=== PATIENT | male | born 1975 | race Caucasian/White ===

== ENCOUNTER 2018-08-09 22:28 | Observation (INO) ==
[2018-08-09] MEDS ORDERED: Aspirin 325 MG Tablet PO ONE (23:17)
--- NOTE | 2018-08-09 23:19 | ED ---
HPI General Chief Complaint: Chest Pain Stated Complaint: chest pain/Dizzy Time Seen by Provider: 08/09/18 23:17 Source: patient Mode of arrival: ambulatory Limitations: no limitations History of Present Illness HPI narrative: 43-year-old male patient with history of diabetes, hypertension, CHF, presents to the ER today because he states that he has not been feeling well for the last few days, nauseous, and today is having left-sided chest pains which she currently rates at an 8 out of 10. He states that his blood sugars have been out of control, in the 300 range. He has been feeling dizzy as well, and has been vomiting. He denies any abdominal pains, diarrhea, fevers , or other symptoms. Related Data Home Medications Medication Instructions Recorded Confirmed atorvastatin 40 mg PO HS 08/09/18 08/09/18 furosemide [Lasix] 40 mg PO DAILY 08/09/18 08/09/18 hydrocodone-acetaminophen [[place]] 2 tab PO Q8H PRN 08/09/18 08/09/18 insulin glargine [Lantus U-100 30 unit SUBCUT DAILY 08/09/18 08/09/18 Insulin] metoprolol succinate 50 mg PO DAILY 08/09/18 08/09/18 potassium chloride 20 meq PO DAILY 08/09/18 08/09/18 pregabalin [Lyrica] 150 mg PO DAILY 08/09/18 08/09/18 tizanidine 4 mg PO TID PRN 08/09/18 08/09/18 trazodone 100 mg PO HS 08/09/18 08/09/18 Allergies Allergy/AdvReac Type Severity Reaction Status Date / Time No Known Allergies Allergy Verified 08/09/18 22:29 Review of Systems ROS: all other systems reviewed are negative [facility] Medical History Medical History Diabetes (Acute) Enlarged heart (Acute) High cholesterol (Acute) Hypertension (Acute) Surgical History Surgical History History of back surgery (Acute) History of shoulder surgery (Acute) Social History Social History Substance History: No History of Abuse Smoking Status: Current every day smoker Tobacco Type: Cigarettes How Often Do You Have a Drink Containing Alcohol: Never Recent Travel in [facility] within the Last 8 Weeks: No Recent Out of Country Travel within the Last 8 Weeks: No Immunization History Tetanus Immunization: Unsure Exam Narrative Exam Narrative: GENERAL: Well-developed middle-age male patient currently in moderate distress. Awake and oriented x3. SKIN: Focused skin assessment warm/dry. HEAD: Atraumatic. Normocephalic. EYES: Pupils equal and round. No scleral icterus. No injection or drainage. ENT: No nasal bleeding or discharge. Mucous membranes pink and moist. NECK: Trachea midline. No JVD. Supple. CARDIOVASCULAR: Regular rate and rhythm. No murmur appreciated. RESPIRATORY: No accessory muscle use. Clear to auscultation. Breath sounds equal bilaterally. GASTROINTESTINAL: Abdomen soft, non-tender, nondistended. Hepatic and splenic margins not palpable. MUSCULOSKELETAL: No obvious deformities. No clubbing. No cyanosis. No edema. NEUROLOGICAL: Awake and alert. No obvious cranial nerve deficits. Motor grossly within normal limits. Normal speech. PSYCHIATRIC: Appropriate mood and affect; insight and judgment normal. Course Initial Documented Vital Signs Temperature 98.7 F 08/09/18 22:30 Pulse Rate 94 H 08/09/18 22:30 Respiratory Rate 20 08/09/18 22:30 Blood Pressure 188/102 H 08/09/18 22:30 Pulse Oximetry 96 08/09/18 22:30 Last Documented Vital Signs Temperature 98.7 F 08/09/18 22:30 Pulse Rate 88 08/09/18 23:51 Respiratory Rate 20 08/09/18 22:30 Blood Pressure 163/80 H 08/09/18 23:51 Pulse Oximetry 96 08/09/18 23:51 Medical Decision Making MDM Narrative Medical decision making narrative: EKG did not show significant dysrhythmias. No acute ST changes. Chest x-ray was fairly unremarkable. Vital signs are stable in the ER. However, considering his medical history, he is at risk for cardiac disease and my plan would be to admit him to chest pain center for further evaluation. Medical Screen Exam Complete: Yes Emergency Medical Condition: Yes Differential Diagnosis Differential Diagnosis: ACS versus pneumonia versus dysrhythmias versus electrolyte abnormalities Lab Data Lab results reviewed: Yes I reviewed the patient's lab results. Result diagrams: 08/09/18 23:50 10/25/18 23:50 Lab Results 08/09/18 08/09/18 08/09/18 Range/Units 23:50 23:50 23:50 WBC 12.2 H (4.0-11.0) th/mm3 RBC 5.20 (4.50-5.90) mil/mm3 Hgb 15.7 (13.0-17.0) gm/dL Hct 45.5 (39.0-51.0) % MCV 87.4 (80.0-100.0) fL MCH 30.2 (27.0-34.0) pg MCHC 34.6 (32.0-36.0) % RDW 13.7 (11.6-17.2) % Plt Count 280 (150-450) th/mm3 MPV 7.5 (7.0-11.0) fL Neut % (Auto) 61.4 (16.0-70.0) % Lymph % (Auto) 27.7 (9.0-44.0) % [place] % (Auto) 7.3 (0.0-8.0) % Eos % (Auto) 3.2 (0.0-4.0) % Baso % (Auto) 0.4 (0.0-2.0) % Neut # (Auto) 7.5 (1.8-7.7) th/mm3 Lymph # (Auto) 3.4 (1.0-4.8) th/mm3 [place] # (Auto) 0.9 (0.0-0.9) th/mm3 Eos # (Auto) 0.4 (0.0-0.4) th/mm3 Baso # (Auto) 0.1 (0.0-0.2) th/mm3 WBC Differential . Differential Comment Auto diff final Sodium 142 (136-145) meq/L Potassium 4.0 (3.5-5.1) meq/L Chloride 107 (98-107) meq/L Carbon Dioxide 26.0 (21.0-32.0) meq/L Anion Gap 9 (5-15) meq/L BUN 11 (7-18) mg/dL Creatinine 0.96 (0.60-1.30) mg/dL Estimated GFR 85 L (>89) mL/min Random Glucose 184 H (74-106) mg/dL Calcium 8.5 (8.5-10.1) mg/dL Total Bilirubin 0.6 (0.2-1.0) mg/dL AST 30 (15-37) U/L ALT 57 (12-78) U/L Alkaline Phosphatase 114 (45-117) U/L Troponin I Less than 0.02 L (0.02-0.05) ng/mL B-Natriuretic Peptide 7 (0-100) pg/mL Total Protein 7.4 (6.4-8.2) g/dL Albumin 3.6 (3.4-5.0) g/dL Imaging Data Attestation: I personally reviewed and interpreted this imaging study as follows : Radiologist's impression: Chest X-Ray 08/09/18 23:17 CONCLUSION: The lungs are clear. ECG Data Attestation: I personally reviewed and interpreted this ECG as follows: Interpretation: EKG shows normal sinus rhythm at a rate of 90 bpm. No signs of acute ST elevations or depressions. Discharge Plan Discharge Disposition Patient Disposition: 30 Still Patient Discharge Condition Condition: Stable Discharge Details Anticipated Discharge Date: 08/10/18 Diagnosis: Chest pain Physicians Team ED Provider: Jb Ruff Primary Care Provider: Primary Care Cris Garcia Rxs /Orders / Referrals /Forms Prescriptions: No Action furosemide [Lasix] 40 mg Tablet 40 mg PO DAILY RF: 0 atorvastatin 40 mg Tablet 40 mg PO HS RF: 0 insulin glargine [Lantus U-100 Insulin] 100 unit/mL Solution 30 unit SUBCUT DAILY RF: 0 metoprolol succinate 50 mg Tablet Extended Release 24 Hr 50 mg PO DAILY RF: 0 hydrocodone-acetaminophen [[place]] 10-325 mg Tablet 2 tab PO Q8H PRN (Reason: Pain) RF: 0 trazodone 100 mg Tablet 100 mg PO HS RF: 0 tizanidine 4 mg Capsule 4 mg PO TID PRN (Reason: Sleep) RF: 0 pregabalin [Lyrica] 150 mg Capsule 150 mg PO DAILY RF: 0 potassium chloride 20 mEq Tablet Extended Release 20 meq PO DAILY RF: 0 Discharge Instructions Patient Printed Instructions: Chest Pain (ED) Discharge Interventions Interventions: Vital Signs Last Done: 08/09/18 22:53 Status ED Status: With Doctor
--- NOTE | 2018-08-09 23:42 | XR ---
EXAM DATE: 08/09/2018 11:33 PM EDT AGE/SEX: 43 years / Male INDICATIONS: Left sided chest pain, dizziness for 5 hours CLINICAL DATA: This is the patient's initial encounter. Patient reports that signs and symptoms have been present for 1 day and indicates a pain score of 8/10. MEDICAL/SURGICAL HISTORY: Congestive heart failure. Diabetes. None. COMPARISON: No prior exams available for comparison. FINDINGS: A single AP view of the chest demonstrates the lungs to be symmetrically aerated without evidence of mass, infiltrate or effusion. The cardiomediastinal contours are unremarkable. Osseous structures a re intact. CONCLUSION: The lungs are clear. Electronically signed by: Wm Stauffer MD 08/09/2018 11:41 PM EDT
[2018-08-10 00:03] LABS: Baso # (Auto) 0.1 th/mm3 (0.0-0.2); Baso % (Auto) 0.4 % (0.0-2.0); Eos # (Auto) 0.4 th/mm3 (0.0-0.4); Eos % (Auto) 3.2 % (0.0-4.0); Hematocrit 45.5 % (39.0-51.0); Hemoglobin 15.7 gm/dL (13.0-17.0); Lymph # (Auto) 3.4 th/mm3 (1.0-4.8); Lymph % (Auto) 27.7 % (9.0-44.0); Mean Corpuscular HGB Conc 34.6 % (32.0-36.0); Mean Corpuscular Hemoglobin 30.2 pg (27.0-34.0); Mean Corpuscular Volume 87.4 fL (80.0-100.0); Mean Platelet Volume 7.5 fL (7.0-11.0); Mono # (Auto) 0.9 th/mm3 (0.0-0.9); Mono % (Auto) 7.3 % (0.0-8.0); Neut # (Auto) 7.5 th/mm3 (1.8-7.7); Neut % (Auto) 61.4 % (16.0-70.0); Platelet Count 280 th/mm3 (150-450); Red Cell Distribution Width 13.7 % (11.6-17.2); White Blood Count 12.2 th/mm3 (4.0-11.0)
[2018-08-10 00:23] LABS: Alanine Aminotransferase 57 U/L (12-78)
[2018-08-10 00:27] LABS: Alkaline Phosphatase 114 U/L (45-117); Total Protein 7.4 g/dL (6.4-8.2)
[2018-08-10 00:31] LABS: Albumin 3.6 g/dL (3.4-5.0); Anion Gap 9 meq/L (5-15); Aspartate Aminotransferase 30 U/L (15-37); Blood Urea Nitrogen 11 mg/dL (7-18); Calcium 8.5 mg/dL (8.5-10.1); Chloride 107 meq/L (98-107); Glomerular Filtration Rate 85 mL/min (>89); Glucose,Random 184 mg/dL (74-106); Sodium 142 meq/L (136-145)
[2018-08-10] MEDS ORDERED: traZODone 100 MG Tablet PO PRN (02:45)
[2018-08-10 03:45] LABS: Creatine Kinase 272 U/L (39-308)
[2018-08-10 08:10] LABS: Creatine Kinase 215 U/L (39-308)
[2018-08-10 08:12] VITALS: BP 150/86; PULSE 77; RESP 12; TEMP 98.4; O2SAT 94
--- NOTE | 2018-08-10 08:24 | ECG ---
Date Performed: 08/10/2018 Time Performed: 05:12:00 PTAGE: 43 years EKG: Sinus rhythm NORMAL ECG PREVIOUS TRACING : 08/10/2018 01.36 Since previous tracing, no significant change noted DOCTOR: Jordi Abel Interpretating Date/Time 08/11/2018 07:32:45
--- NOTE | 2018-08-10 08:30 | ECG ---
Date Performed: 08/09/2018 Time Performed: 22:59:14 PTAGE: 43 years EKG: Sinus rhythm NORMAL ECG NO PREVIOUS TRACING DOCTOR: Jordi Abel Interpretating Date/Time 08/10/2018 08:29:49
--- NOTE | 2018-08-10 08:45 | P.HPCA ---
History of Present Illness Primary Care Physician: No Primary Care Physician Chief Complaint: Chest pain History of Present Illness: This is a 43-year-old male with history of diabetes, hypertension, hyperlipidemia and also stated history of congestive heart failure that presents to ED with complaint of left-sided chest pain that began yesterday. Last 2-3 hours. Was rated as an 8 out of 10. Was at home when it began. He was nauseous diaphoretic and shortness of breath. States similar episodes have happened in the past. States this occurs about every 3 weeks. Found nothing in particular to bring this on. He said this has been evaluated before. States last evaluation was 6 months ago in [place] and had a normal stress test. Currently denies chest discomfort. States history of congestive heart failure, diabetes, hypertension, hyperlipidemia, tobacco abuse. Denies known CAD. Denies family history of CAD. Smokes 1 pack a series daily and has done so for 25 years. - Diagnosis (1) Chest pain (2) Hypertension (3) Hyperlipidemia (4) Diabetes (5) Obesity (6) Tobacco abuse Review of Systems General: Patient denies fevers, chills, and recent travel. HEENT: Patient denies headache, sore throat, difficulty swallowing. Cardiovascular: Has the chest discomfort as mentioned above. Denies sensation of heart beating rapidly or irregularly. No syncope. He was diaphoretic. Respiratory: He was short of breath. Denies inspirational chest discomfort. Denies coughing wheezing or hemoptysis. GI: He was nauseous. Patient denies vomiting, diarrhea, abdominal pain, bloody stools. Musculoskeletal: Patient denies joint pain or edema. Denies calf pain or edema. Neurovascular: Patient denies numbness, tingling, weakness in extremities. Denies headache. Endocrine: Denies polyuria and polydipsia. Hematologic: Denies easy bruising. Skin: Denies rash or itching. PMFSH - History History Provided By: Patient - Medical History Medical History: Medical History (Last Reviewed 08/09/18 @ 23:18 by Jb Ruff MD) Diabetes Enlarged heart High cholesterol Hypertension - Surgical History Surgical History: Surgical History (Last Reviewed 08/09/18 @ 23:18 by Jb Ruff MD) History of back surgery History of shoulder surgery - Tobacco History Second Hand Smoke Exposure: Yes Tobacco Use In Past 30 Days: Yes Smoking Status: Current every day smoker Tobacco Type: Cigarettes - Alcohol History How Often Do You Have a Drink Containing Alcohol: 2 to 4 times a month - Substance Use History Substance History: No History of Abuse - Travel History Recent Travel in the [place] Within the Last 8 Weeks: No Recent Travel Out of the Country Within the Last 8 Weeks: No - Immunization History Tetanus Immunization: Unsure Medications and Allergies Active Medications: Active Medications Hydrocodone Bitart/Acetaminophen ([place] 10/325) 2 tab PO Q8H PRN PRN Reason: PAIN SCALE 1-10 Last Admin: 08/10/18 02:55 Dose: 2 tab Albuterol (Duoneb Neb (Prn)) 1 ampul NEB Q4HR NEB PRN PRN Reason: SHORTNESS OF BREATH/WHEEZING Aspirin (Aspirin) 325 mg PO DAILY ELISABET Atorvastatin Calcium (Lipitor) 40 mg PO HS ELISABET Furosemide (Lasix) 40 mg PO DAILY ELISABET Insulin Human Regular (Novolin R Correctional Sugar Inj) 0 units SQ ACHS ELISABET; Protocol Metoprolol Succinate (Toprol Xl) 50 mg PO DAILY ELISABET Non-Formulary Medication (Potassium Chloride [Potassium Chloride]) 20 meq PO DAILY ELISABET Non-Formulary Medication (Pregabalin [Lyrica]) 150 mg PO DAILY ELISABET Non-Formulary Medication (Tizanidine [Tizanidine]) 4 mg PO TID PRN PRN Reason: Sleep Sodium Chloride (Ns Flush) 2 ml IV.FLUSH BID ELISABET Sodium Chloride (Ns Flush) 2 ml IV.FLUSH PRN PRN PRN Reason: FLUSH AFTER USING IV ACCESS Trazodone HCl (Desyrel) 100 mg PO HS PRN PRN Reason: INSOMNIA Last Admin: 08/10/18 02:55 Dose: 100 mg Trazodone HCl (Desyrel) 100 mg PO HS ELISABET Allergies Allergy/AdvReac Type Severity Reaction Status Date / Time No Known Allergies Allergy Verified 08/09/18 22:29 Home Medications Medication Instructions Recorded Confirmed Type atorvastatin 40 mg PO HS 08/09/18 08/09/18 History furosemide [Lasix] 40 mg PO DAILY 08/09/18 08/09/18 History hydrocodone-acetaminophen [[place]] 2 tab PO Q8H PRN 08/09/18 08/09/18 History insulin glargine [Lantus U-100 30 unit SUBCUT DAILY 08/09/18 08/09/18 History Insulin] metoprolol succinate 50 mg PO DAILY 08/09/18 08/09/18 History potassium chloride 20 meq PO DAILY 08/09/18 08/09/18 History pregabalin [Lyrica] 150 mg PO DAILY 08/09/18 08/09/18 History tizanidine 4 mg PO TID PRN 08/09/18 08/09/18 History trazodone 100 mg PO HS 08/09/18 08/09/18 History Exam Vital signs: Vital Signs 08/09/18 22:30 08/09/18 22:53 08/09/18 23:51 Temperature 98.7 F Pulse Rate 94 H 93 H 88 Respiratory Rate 20 Blood Pressure 188/102 H 152/105 H 163/80 H Pulse Oximetry 96 97 96 08/10/18 03:46 08/10/18 08:00 Temperature 97.5 F L 98.4 F Pulse Rate 78 77 Respiratory Rate 16 12 Blood Pressure 140/75 150/86 H Pulse Oximetry 99 94 L Intake & Output 08/09/18 08/10/18 08/10/18 18:59 06:59 18:59 Weight 192.777 kg Other: Date of Last Bowel Movement 08/10/18 Weight On Admission 192.777 kg Narrative: GENERAL: He is a morbidly obese patient with a BMI 51.7. This is a patient that is in no apparent distress. Patient speaks in clear complete sentences. Patient is pleasant. HEENT: Head is atraumatic and normocephalic. Neck is supple without lymphadenopathy and trachea is midline. No JVD or carotid bruits. CARDIOVASCULAR: Regular rate and rhythm without murmurs, gallops, or rubs. RESPIRATORY: Clear to auscultation. Breath sounds equal bilaterally. No wheezes , rales, or rhonchi. Chest wall is nontender. No use of accessory muscles. GASTROINTESTINAL: Abdomen is nontender, nondistended. Abdomen soft. No obvious pulsatile mass or bruit. No CVA tenderness. Strong femoral pulses bilaterally. Normal bowel sounds in all quadrants. MUSCULOSKELETAL: Patient is moving upper and lower extremities freely. No calf tenderness or edema, no Homans sign. Strong pulses in upper and lower extremities. NEUROLOGICAL: Patient is alert and oriented. Cranial nerves 2-12 are grossly intact. No focal deficits and speech is clear. SKIN: No rash and turgor is normal. Results 08/09/18 23:50 08/09/18 23:50 Cardiac Enzymes 08/09/18 08/09/18 08/10/18 Range/Units 23:50 23:50 02:40 AST 30 (15-37) U/L Troponin I Less than 0.02 L Less than 0.02 L (0.02-0.05) ng/mL B-Natriuretic Peptide 7 (0-100) pg/mL 08/10/18 Range/Units 06:23 AST (15-37) U/L Troponin I Less than 0.02 L (0.02-0.05) ng/mL B-Natriuretic Peptide (0-100) pg/mL Coagulation 08/09/18 Range/Units 23:50 B-Natriuretic Peptide 7 (0-100) pg/mL CBC 08/09/18 Range/Units 23:50 WBC 12.2 H (4.0-11.0) th/mm3 RBC 5.20 (4.50-5.90) mil/mm3 Hgb 15.7 (13.0-17.0) gm/dL Hct 45.5 (39.0-51.0) % Plt Count 280 (150-450) th/mm3 Neut # (Auto) 7.5 (1.8-7.7) th/mm3 Lymph # (Auto) 3.4 (1.0-4.8) th/mm3 [place] # (Auto) 0.9 (0.0-0.9) th/mm3 Eos # (Auto) 0.4 (0.0-0.4) th/mm3 Baso # (Auto) 0.1 (0.0-0.2) th/mm3 Comprehensive Metabolic Panel 08/09/18 Range/Units 23:50 Sodium 142 (136-145) meq/L Potassium 4.0 (3.5-5.1) meq/L Chloride 107 (98-107) meq/L Carbon Dioxide 26.0 (21.0-32.0) meq/L BUN 11 (7-18) mg/dL Creatinine 0.96 (0.60-1.30) mg/dL Calcium 8.5 (8.5-10.1) mg/dL AST 30 (15-37) U/L ALT 57 (12-78) U/L Alkaline Phosphatase 114 (45-117) U/L Total Protein 7.4 (6.4-8.2) g/dL Albumin 3.6 (3.4-5.0) g/dL Intake and Output 08/09/18 08/10/18 08/10/18 22:59 06:59 14:59 Other: Date of Last Bowel Movement 08/10/18 Weight 192.777 kg 192.777 kg Weight On Admission 192.777 kg - Imaging and Cardiology Imaging: Impressions Chest X-Ray 08/09/18 23:17 CONCLUSION: The lungs are clear. EKG interpretations - EKG EKG shows: sinus rhythm (EKGs are sinus rhythm nonspecific T wave changes inferiorly) Caprini VTE Risk Assessment Caprini VTE Risk Assessment: No/Low Risk (score <= 1) Caprini Risk Assessment Model: Point Value = 1 Point Value = 2 Point Value = 3 Point Value = 5 Age 41-60 Minor surgery BMI > 25 kg/m2 Swollen legs Varicose veins or History of unexplained or recurrent spontaneous Oral contraceptives or hormone replacement Sepsis (< 1 month) Serious lung disease, including pneumonia (< 1 month) Abnormal pulmonary function Acute myocardial infarction Congestive heart failure (< 1 month) History of inflammatory bowel disease Medical patient at bed rest Age 61-74 Arthroscopic surgery Major open surgery (> 45 min) Laparoscopic surgery (> 45 min) Malignancy Confined to bed (> 72 hours) Immobilizing plaster cast Central venous access Age >= 75 History of VTE Family history of VTE Factor V Leiden Prothrombin [id number] Lupus anticoagulant Anticardiolipin antibodies Elevated serum homocysteine Heparin-induced thrombocytopenia Other congenital or acquired thrombophilia Stroke (< 1 month) Elective arthroplasty Hip, pelvis, or leg fracture Acute spinal cord injury (< 1 month) Prophylaxis Regimen: Total Risk Factor Score Risk Level Prophylaxis Regimen 0-1 Low Early ambulation 2 Moderate Order ONE of the following: *Sequential Compression Device (SCD) *Heparin 5000 units SQ BID 3-4 Higher Order ONE of the following medications: *Heparin 5000 units SQ TID *Enoxaparin/Lovenox 40 mg SQ daily (WT < 150 kg, CrCl > 30 mL/min) *Enoxaparin/Lovenox 30 mg SQ daily (WT < 150 kg, CrCl > 10-29 mL/min) *Enoxaparin/Lovenox 30 mg SQ BID (WT < 150 kg, CrCl > 30 mL/min) AND/OR *Sequential Compression Device (SCD) 5 or more Highest Order ONE of the following medications: *Heparin 5000 units SQ TID (Preferred with Epidurals) *Enoxaparin/Lovenox 40 mg SQ daily (WT < 150 kg, CrCl > 30 mL/min) *Enoxaparin/Lovenox 30 mg SQ daily (WT < 150 kg, CrCl > 10-29 mL/min) *Enoxaparin/Lovenox 30 mg SQ BID (WT < 150 kg, CrCl > 30 mL/min) AND *Sequential Compression Device (SCD) Assessment and Plan - Assessment (1) Chest pain Code(s): R07.9 - Chest pain, unspecified Status: Acute (2) Hypertension Code(s): I10 - Essential (primary) hypertension Status: Acute (3) Hyperlipidemia Code(s): E78.5 - Hyperlipidemia, unspecified Status: Acute (4) Diabetes Code(s): E11.9 - Type 2 diabetes mellitus without complications Status: Acute (5) Obesity Code(s): E66.9 - Obesity, unspecified Status: Acute (6) Tobacco abuse Code(s): Z72.0 - Tobacco use Status: Acute - Plan * Chest pain: Patient has had serial cardiac enzymes and EKGs for ruling out purposes. He has been seen by Dr. Abel of cardiology in the chest pain center. He will undergo a Lexiscan. He will be discharged home if this is nonischemic with instructions to follow-up with PCP. Return to ED for interval issues. * Diabetes: He will be on sliding scale insulin coverage. He is a follow diabetic diet. He should resume a diabetic diet at discharge and his medications as well. * Hypertension: Continue medications. * Hyperlipidemia: Continue medications. * Obesity: Patient has been counseled importance of diet, excess, weight loss. * Tobacco abuse: Patient has been counseled on the importance of smoking cessation. Patient is stable at this time. He is agreeable to this plan. H&P: Quality - VTE Deep Vein Thrombosis/Pulmonary Embolism Present on Admission: No
[2018-08-10] MEDS ORDERED: Aspirin 325 MG Tablet PO SCH (09:00)
[2018-08-10] MEDS ORDERED: Furosemide 40 MG Tablet PO SCH (09:00)
[2018-08-10] MEDS ORDERED: Pregabalin 25 MG Capsule PO SCH (09:00)
[2018-08-10] MEDS ORDERED: Regadenoson Inj 0.4 MG/5 ML Syringe IV.PUSH ONE (11:10)
[2018-08-10] MEDS ORDERED: Insulin NovoLIN Regular Correctional Sugar Inj SQ SCH (12:00)
--- NOTE | 2018-08-10 14:46 | TR ---
Date Performed: 08/10/2018 Time Performed: 11:08:31 DOCTOR: Jordi Abel DRUG LIST: CLINICAL HISTORY: CHEST PAIN REASON FOR TEST: CHEST PAIN REASON FOR ENDING: OBSERVATION: CONCLUSION: COMMENTS: Lexiscan stress test was performed under standard four minute protocol. Radionuclide was injected one minute prior to ending the test. No electrocardiographic abormalities were present t o suggest ischemia. Nuclear imaging and interpretation are pending.
[2018-08-10] MEDS ORDERED: traZODone 100 MG Tablet PO SCH (21:00)
--- NOTE | 2018-08-11 07:32 | ECG ---
Date Performed: 08/10/2018 Time Performed: 01:36:54 PTAGE: 43 years EKG: Sinus rhythm NORMAL ECG PREVIOUS TRACING : 08/09/2018 22.59 Since previous tracing, no significant change noted DOCTOR: Jordi Abel Interpretating Date/Time 08/11/2018 07:31:24
== END 2018-08-10 12:44 | disposition left against medical advice (07) ==
LOC: NEDA 22:28 → NEPC 22:28 → NEDA 08-10 02:02 → NEPFCDU 08-10 02:07
PROVIDERS: ADMIT Internal Medicine Cardiovascular Disease; ATTEND Internal Medicine Cardiovascular Disease

== ENCOUNTER 2018-09-20 13:09 | Observation (INO) ==
[2018-09-20] MEDS ORDERED: Metoprolol Tartrate 25 MG Tablet PO ONE (13:47)
[2018-09-20 14:19] LABS: Baso # (Auto) 0.1 th/mm3 (0.0-0.2); Baso % (Auto) 0.5 % (0.0-2.0); Eos # (Auto) 0.4 th/mm3 (0.0-0.4); Eos % (Auto) 3.4 % (0.0-4.0); Hematocrit 45.2 % (39.0-51.0); Hemoglobin 16.1 gm/dL (13.0-17.0); Lymph # (Auto) 2.1 th/mm3 (1.0-4.8); Lymph % (Auto) 18.4 % (9.0-44.0); Mean Corpuscular HGB Conc 35.6 % (32.0-36.0); Mean Corpuscular Hemoglobin 30.4 pg (27.0-34.0); Mean Corpuscular Volume 85.3 fL (80.0-100.0); Mean Platelet Volume 7.7 fL (7.0-11.0); Mono % (Auto) 8.5 % (0.0-8.0); Neut % (Auto) 69.2 % (16.0-70.0); Platelet Count 364 th/mm3 (150-450); Red Cell Distribution Width 13.7 % (11.6-17.2); White Blood Count 11.6 th/mm3 (4.0-11.0)
--- NOTE | 2018-09-20 14:20 | XR ---
EXAM DATE: 09/20/2018 2:12 PM EST AGE/SEX: 43 years / Male INDICATIONS: . Chest pain. CLINICAL DATA: This is the patient's initial encounter. Patient reports that signs and symptoms have been present for 1 day and indicates a pain score of 4/10. MEDICAL/SURGICAL HISTORY: Congestive heart failure. Diabetes mellitus type II. None. [place] [facility] [place]. . FINDINGS: PA and lateral views of the chest demonstrate a normal-sized cardiac silhouette. There is no effusion , consolidation, or pneumothorax. The bones and soft tissues demonstrate no acute abnormality. CONCLUSION: No acute cardiopulmonary abnormality is identified. Electronically signed by: Leroy Young MD 09/20/2018 2:19 PM EST
--- NOTE | 2018-09-20 14:27 | ED ---
HPI General Chief Complaint: Chest Pain Stated Complaint: Cardiac Time Seen by Provider: 09/20/18 13:38 Source: patient Mode of arrival: ambulatory Limitations: no limitations History of Present Illness HPI narrative: Patient is a 43-year-old male, past medical history significant for hypertension, hyperlipidemia, type 2 diabetes, previous tobacco use who quit smoking 4 days ago, who presents with complaint of slight chest pain and dyspnea on exertion that resolves with rest. This has never happened before. No leg swelling nor immobilization. He has not had his metoprolol for the last 3 days as he ran out. No fever, chills, cough, congestion. No chest pain or shortness of breath at rest. complaint: Reports chest pain STEMI Alert: No Onset (ago): hour(s) Duration: intermittent and now resolved Onset: during exertion Pain location: Reports substernal Severity: moderate Quality: Reports tightness Pain radiation: Reports none Relieving factors: rest Exacerbating factors: exertion Treatments prior to arrival chest pain: Reports none Related Data Home Medications Medication Instructions Recorded Confirmed atorvastatin 40 mg PO HS 08/09/18 09/20/18 furosemide [Lasix] 40 mg PO DAILY 08/09/18 09/20/18 hydrocodone-acetaminophen [[place]] 2 tab PO Q8H PRN 08/09/18 09/20/18 insulin glargine [Lantus U-100 30 unit SUBCUT DAILY 08/09/18 09/20/18 Insulin] metoprolol succinate 25 mg PO DAILY 08/09/18 09/20/18 potassium chloride 20 meq PO DAILY 08/09/18 09/20/18 pregabalin [Lyrica] 150 mg PO DAILY 08/09/18 09/20/18 tizanidine 4 mg PO TID PRN 08/09/18 09/20/18 trazodone 100 mg PO HS 08/09/18 09/20/18 Allergies Allergy/AdvReac Type Severity Reaction Status Date / Time No Known Allergies Allergy Verified 08/09/18 22:29 Review of Systems ROS: all other systems reviewed are negative [facility] Medical History Medical History Diabetes (Acute) Enlarged heart (Acute) High cholesterol (Acute) Hypertension (Acute) Surgical History Surgical History History of back surgery (Acute) History of shoulder surgery (Acute) Social History Social History Substance History: No History of Abuse Second Hand Smoke Exposure: Yes Smoking Status: Former smoker Tobacco Type: Cigarettes How Often Do You Have a Drink Containing Alcohol: Never Recent Travel in [facility] within the Last 8 Weeks: No Recent Out of Country Travel within the Last 8 Weeks: No Immunization History Tetanus Immunization: <5 Years Exam Narrative Exam Narrative: GENERAL: Well-appearing though anxious male in no acute distress SKIN: Focused skin assessment warm/dry. HEAD: Atraumatic. Normocephalic. EYES: Pupils equal and round. No scleral icterus. No injection or drainage. ENT: No nasal bleeding or discharge. Mucous membranes pink and moist. NECK: Trachea midline. No JVD. CARDIOVASCULAR: Regular rate and rhythm. No murmur appreciated. Intact and equal peripheral pulses. RESPIRATORY: No accessory muscle use. Clear to auscultation. Breath sounds equal bilaterally. GASTROINTESTINAL: Abdomen soft, non-tender, nondistended. Hepatic and splenic margins not palpable. MUSCULOSKELETAL: No obvious deformities. No clubbing. No cyanosis. No edema. NEUROLOGICAL: Awake and alert. No obvious cranial nerve deficits. Motor grossly within normal limits. Normal sensation. Normal speech. PSYCHIATRIC: Appropriate mood and affect; insight and judgment normal. Course Initial Documented Vital Signs Temperature 98.4 F 09/20/18 13:36 Pulse Rate 102 H 09/20/18 13:36 Respiratory Rate 22 09/20/18 13:36 Blood Pressure 184/89 H 09/20/18 13:36 Pulse Oximetry 94 L 09/20/18 13:36 Last Documented Vital Signs Temperature 98.4 F 09/20/18 14:13 Pulse Rate 75 09/20/18 16:07 Respiratory Rate 22 09/20/18 14:13 Blood Pressure 122/58 L 09/20/18 16:07 Pulse Oximetry 95 09/20/18 14:13 Medical Decision Making [facility] Narrative Medical decision making narrative: Patient is a 43-year-old male who presents with complaint of chest pain intermittently with exertion. He has been chest pain-free while in the emergency department. EKG is without acute ischemic changes. Labs revealed a slightly elevated d-dimer but CTA did not show any acute process. Initial troponin was negative. He has been placed in the chest pain center for serial troponins with EKGs and possible stress test. Medical Screen Exam Complete: Yes Emergency Medical Condition: Yes Differential Diagnosis Differential Diagnosis: Differential diagnosis includes but is not limited to acute coronary syndrome, pneumonia, nicotine withdrawal. Medical Records Medical records reviewed: Yes I reviewed the patient's medical records. Lab Data Lab results reviewed: Yes I reviewed the patient's lab results. Result diagrams: 09/20/18 14:00 09/20/18 14:00 Lab Results 09/20/18 09/20/18 09/20/18 Range/Units 14:00 14:00 14:00 WBC 11.6 H (4.0-11.0) th/mm3 RBC 5.30 (4.50-5.90) mil/mm3 Hgb 16.1 (13.0-17.0) gm/dL Hct 45.2 (39.0-51.0) % MCV 85.3 (80.0-100.0) fL MCH 30.4 (27.0-34.0) pg MCHC 35.6 (32.0-36.0) % RDW 13.7 (11.6-17.2) % Plt Count 364 (150-450) th/mm3 MPV 7.7 (7.0-11.0) fL Neut % (Auto) 69.2 (16.0-70.0) % Lymph % (Auto) 18.4 (9.0-44.0) % [place] % (Auto) 8.5 H (0.0-8.0) % Eos % (Auto) 3.4 (0.0-4.0) % Baso % (Auto) 0.5 (0.0-2.0) % Neut # (Auto) 8.0 H (1.8-7.7) th/mm3 Lymph # (Auto) 2.1 (1.0-4.8) th/mm3 [place] # (Auto) 1.0 H (0.0-0.9) th/mm3 Eos # (Auto) 0.4 (0.0-0.4) th/mm3 Baso # (Auto) 0.1 (0.0-0.2) th/mm3 WBC Differential . Differential Comment Auto diff final D-Dimer Quant (PE/DVT) 0.59 H (0.00-0.50) mg/L FEU Sodium (136-145) meq/L Potassium (3.5-5.1) meq/L Chloride (98-107) meq/L Carbon Dioxide (21.0-32.0) meq/L Anion Gap (5-15) meq/L BUN (7-18) mg/dL Creatinine (0.60-1.30) mg/dL Estimated GFR (>89) mL/min Random Glucose (74-106) mg/dL Calcium (8.5-10.1) mg/dL Total Bilirubin (0.2-1.0) mg/dL AST (15-37) U/L ALT (12-78) U/L Alkaline Phosphatase (45-117) U/L Troponin I (0.02-0.05) ng/mL B-Natriuretic Peptide 63 (0-100) pg/mL Total Protein (6.4-8.2) g/dL Albumin (3.4-5.0) g/dL 09/20/18 Range/Units 14:00 WBC (4.0-11.0) th/mm3 RBC (4.50-5.90) mil/mm3 Hgb (13.0-17.0) gm/dL Hct (39.0-51.0) % MCV (80.0-100.0) fL MCH (27.0-34.0) pg MCHC (32.0-36.0) % RDW (11.6-17.2) % Plt Count (150-450) th/mm3 MPV (7.0-11.0) fL Neut % (Auto) (16.0-70.0) % Lymph % (Auto) (9.0-44.0) % [place] % (Auto) (0.0-8.0) % Eos % (Auto) (0.0-4.0) % Baso % (Auto) (0.0-2.0) % Neut # (Auto) (1.8-7.7) th/mm3 Lymph # (Auto) (1.0-4.8) th/mm3 [place] # (Auto) (0.0-0.9) th/mm3 Eos # (Auto) (0.0-0.4) th/mm3 Baso # (Auto) (0.0-0.2) th/mm3 WBC Differential Differential Comment D-Dimer Quant (PE/DVT) (0.00-0.50) mg/L FEU Sodium 140 (136-145) meq/L Potassium 3.6 (3.5-5.1) meq/L Chloride 106 (98-107) meq/L Carbon Dioxide 26.5 (21.0-32.0) meq/L Anion Gap 8 (5-15) meq/L BUN 14 (7-18) mg/dL Creatinine 0.96 (0.60-1.30) mg/dL Estimated GFR 85 L (>89) mL/min Random Glucose 214 H (74-106) mg/dL Calcium 8.3 L (8.5-10.1) mg/dL Total Bilirubin 0.6 (0.2-1.0) mg/dL AST 23 (15-37) U/L ALT 59 (12-78) U/L Alkaline Phosphatase 121 H (45-117) U/L Troponin I Less than 0.02 L (0.02-0.05) ng/mL B-Natriuretic Peptide (0-100) pg/mL Total Protein 7.7 (6.4-8.2) g/dL Albumin 3.9 (3.4-5.0) g/dL Imaging Data Attestation: I personally reviewed and interpreted this imaging study as follows : Radiologist's impression: Chest X-Ray 09/20/18 13:49 CONCLUSION: No acute cardiopulmonary abnormality is identified. Chest CTA 09/20/18 14:49 CONCLUSION: No evidence of pulmonary embolism. ECG Data EKG Prior to Arrival: No Attestation: I personally reviewed and interpreted this ECG as follows: (Sinus rhythm at a rate of [address] or T wave changes.) Discharge Plan Discharge Disposition Patient Disposition: ED Admit(ED Internal Use Only) Discharge Condition Condition: Stable Discharge Order Discharge Orders: ED Use Only Admit Order (Routine); Ordered 09/20/18 Ordered By: Jihan Cooley Discharge Details Diagnosis: Chest pain, rule out acute myocardial infarction Physicians Team ED Provider: Jihan Cooley Primary Care Provider: UNKNOWN, Attending Provider: Diogo Carmona Rxs /Orders / Referrals /Forms Prescriptions: No Action furosemide [Lasix] 40 mg Tablet 40 mg PO DAILY RF: 0 atorvastatin 40 mg Tablet 40 mg PO HS RF: 0 insulin glargine [Lantus U-100 Insulin] 100 unit/mL Solution 30 unit SUBCUT DAILY RF: 0 metoprolol succinate 50 mg Tablet Extended Release 24 Hr 25 mg PO DAILY RF: 0 hydrocodone-acetaminophen [[place]] 10-325 mg Tablet 2 tab PO Q8H PRN (Reason: Pain) RF: 0 trazodone 100 mg Tablet 100 mg PO HS RF: 0 tizanidine 4 mg Capsule 4 mg PO TID PRN (Reason: Sleep) RF: 0 pregabalin [Lyrica] 150 mg Capsule 150 mg PO DAILY RF: 0 potassium chloride 20 mEq Tablet Extended Release 20 meq PO DAILY RF: 0 Discharge Instructions Patient Printed Instructions: Chest Pain (ED) Discharge Interventions Interventions: Vital Signs Last Done: 09/20/18 13:39 Status ED Status: With Doctor
[2018-09-20 14:41] LABS: Alanine Aminotransferase 59 U/L (12-78); Alkaline Phosphatase 121 U/L (45-117); Total Protein 7.7 g/dL (6.4-8.2)
[2018-09-20 14:43] LABS: Albumin 3.9 g/dL (3.4-5.0); Anion Gap 8 meq/L (5-15); Aspartate Aminotransferase 23 U/L (15-37); Blood Urea Nitrogen 14 mg/dL (7-18); Calcium 8.3 mg/dL (8.5-10.1); Carbon Dioxide 26.5 meq/L (21.0-32.0); Chloride 106 meq/L (98-107); Glomerular Filtration Rate 85 mL/min (>89); Glucose,Random 214 mg/dL (74-106); Potassium 3.6 meq/L (3.5-5.1); Sodium 140 meq/L (136-145)
--- NOTE | 2018-09-20 16:12 | CT ---
EXAM DATE: 09/20/2018 4:02 PM EST AGE/SEX: 43 years / Male INDICATIONS: Chest pain. CLINICAL DATA: This is the patient's initial encounter. Patient reports that signs and symptoms have been present for 1 day and indicates a pain score of 7/10. MEDICAL/SURGICAL HISTORY: Diabetes. Hyperparathyroidism. None. RADIATION DOSE: 11.01 CTDI (mGy) COMPARISON: No prior exams available for comparison. TECHNIQUE: Volumetric scanning was performed using a multi-row detector CT scanner during bolus infu cherie of 78 ml Omnipaque 350 (iohexol) nonionic water-soluble contrast as a single exam dose. The vernon a was post processed with a variety of visualization algorithms including full volume maximum intensi ty projection and sliding thin slab reformation. Using automated exposure control and adjustment of the mA and/or kV according to patient size, radiation dose was kept as low as reasonably achievable t o obtain optimal diagnostic quality images. DICOM format image data is available electronically for review and comparison. FINDINGS: Examination of the pulmonary vasculature demonstrates good filling of the main, lobar and segmental b ranches. There are no filling defects to suggest pulmonary embolism. Multiplanar reconstructions are also unremarkable. The lungs are free of acute parenchymal opacity. No pulmonary nodules or pleural effusions are identi fied. Examination of the mediastinum demonstrates no abnormally enlarged lymph nodes by CT criteria. No axillary or hilar abnormalities are identified. Coronary artery calcifications are present. The v isualized upper abdominal structures are unremarkable. CONCLUSION: No evidence of pulmonary embolism. Electronically signed by: Jordi Clark MD 09/20/2018 4:11 PM EST
[2018-09-20] MEDS: Pregabalin 75 MG Capsule PO SCH (16:27)
--- NOTE | 2018-09-20 17:51 | P.HPCA ---
History of Present Illness Primary Care Physician: PCP-unable to recall name of physician Chief Complaint: Chest pain History of Present Illness: 43 year old male with history of diabetes, hypertension, hyperlipidemia, tobacco use, and congestive heart failure presents the emergency room for further evaluation of exertional chest pain and dizziness. Onset 3 days ago after running out of metoprolol. Reports episodes being with dizziness, feelings of "elevated blood pressure," and left anterior chest tightness. No radiation of chest pain. Associated symptoms include nausea and diaphoresis. No vomiting or dyspnea. Duration 5 minutes. Precipitating factors exertion. Relieving factors rest. [place] similar pain in the past. Patient was admitted chest pain center on 08/10/18 and did not complete cardiac imaging for chemical stress test and signed out AMA. Since admission 08/10/18 reports feeling well until running out of his metoprolol. Past cardiac testing None Social history Known hypertension, diabetes, hyperlipidemia, congestive heart failure. No known coronary artery disease. Quit smoking 4 days ago. 19 pack year history of smoking. Alcohol or recreational drug use. . Endorses sedentary lifestyle. 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 - Medical History Medical History: Medical History (Last Updated 09/20/18 @ 17:43 by EDNA Zaldivar) Congestive heart failure Morbidly obese Tobacco use Diabetes Enlarged heart High cholesterol Hypertension - Surgical History Surgical History: Surgical History (Last Reviewed 09/20/18 @ 17:43 by EDNA Zaldivar) History of back surgery History of shoulder surgery - Tobacco History Second Hand Smoke Exposure: Yes Tobacco Use In Past 30 Days: Yes Smoking Status: Former smoker (Quit 4 days ago) Tobacco Type: Cigarettes Packs Per Day: 1 Number of Pack Years (if former smoker): 19 - Alcohol History How Often Do You Have a Drink Containing Alcohol: Never - Substance Use History Substance History: No History of Abuse - Travel History Recent Travel in the [place] Within the Last 8 Weeks: No Recent Travel Out of the Country Within the Last 8 Weeks: No - Immunization History Tetanus Immunization: <5 Years Medications and Allergies Active Medications: Active Medications Pregabalin (Lyrica) 150 mg PO DAILY ELISABET Last Admin: 09/20/18 16:27 Dose: 150 mg Sodium Chloride (Ns Flush) 2 ml IV.FLUSH UNSCH PRN PRN Reason: FLUSH AFTER USING IV ACCESS Sodium Chloride (Ns Flush) 2 ml IV.FLUSH PRN PRN PRN Reason: FLUSH AFTER USING IV ACCESS Sodium Chloride (Ns Flush) 2 ml IV.FLUSH BID ELISABET Allergies Allergy/AdvReac Type Severity Reaction Status Date / Time No Known Allergies Allergy Verified 08/09/18 22:29 Home Medications Medication Instructions Recorded Confirmed Type atorvastatin 40 mg PO HS 08/09/18 09/20/18 History furosemide [Lasix] 40 mg PO DAILY 08/09/18 09/20/18 History hydrocodone-acetaminophen [[place]] 2 tab PO Q8H PRN 08/09/18 09/20/18 History insulin glargine [Lantus U-100 30 unit SUBCUT DAILY 08/09/18 09/20/18 History Insulin] metoprolol succinate 25 mg PO DAILY 08/09/18 09/20/18 History potassium chloride 20 meq PO DAILY 08/09/18 09/20/18 History pregabalin [Lyrica] 150 mg PO DAILY 08/09/18 09/20/18 History tizanidine 4 mg PO TID PRN 08/09/18 09/20/18 History trazodone 100 mg PO HS 08/09/18 09/20/18 History Exam Vital signs: Vital Signs 09/20/18 13:36 09/20/18 13:39 09/20/18 14:12 Temperature 98.4 F Pulse Rate 102 H 104 H Respiratory Rate 22 Blood Pressure 184/89 H Pulse Oximetry 94 L 95 09/20/18 14:13 09/20/18 16:07 09/20/18 17:22 Temperature 98.4 F 97.9 F Pulse Rate 106 H 75 77 Respiratory Rate 22 16 Blood Pressure 122/58 L 125/60 Pulse Oximetry 95 97 Intake & Output 09/19/18 09/20/18 09/20/18 18:59 06:59 18:59 Weight 167.829 kg Narrative: GENERAL: Alert WN, WD, NAD, pleasant, morbidly obese male, 167 kg, heavily tattooed HEAD: NC, AT EYES: Sclera clear, conjunctiva without injection, pupils equal and round ENT: Mucous membranes pink and moist, midline lip pierced NECK: Supple, no masses, trachea midline CV: Distant heart tones, RRR, without murmur, rub, gallop, no JVD, S1-S2. RESP: Diminished lungs throughout bilateral, no crackles, wheeze, rhonchi, symmetrical chest rise, nonlabored, able to speak in full sentences ABD: Soft, NT, ND EXT: Pulses +2x4, +1 bilateral dependent edema, left lower extremities slight erythema MS: Normal tone x4 extremities, nontender, no obvious deformities, full range of motion NEURO: Motor strength 5/5 PSYCH: A+O x3, pleasant affect, appropriate speech, mood, insight and judgment SKIN: Normal turgor, normal texture, brisk cap refill, decreased lower extremity hair distribution Results 09/20/18 14:00 09/20/18 14:00 Cardiac Enzymes 09/20/18 09/20/18 Range/Units 14:00 14:00 AST 23 (15-37) U/L Troponin I Less than 0.02 L (0.02-0.05) ng/mL B-Natriuretic Peptide 63 (0-100) pg/mL Coagulation 09/20/18 Range/Units 14:00 B-Natriuretic Peptide 63 (0-100) pg/mL CBC 09/20/18 Range/Units 14:00 WBC 11.6 H (4.0-11.0) th/mm3 RBC 5.30 (4.50-5.90) mil/mm3 Hgb 16.1 (13.0-17.0) gm/dL Hct 45.2 (39.0-51.0) % Plt Count 364 (150-450) th/mm3 Neut # (Auto) 8.0 H (1.8-7.7) th/mm3 Lymph # (Auto) 2.1 (1.0-4.8) th/mm3 [place] # (Auto) 1.0 H (0.0-0.9) th/mm3 Eos # (Auto) 0.4 (0.0-0.4) th/mm3 Baso # (Auto) 0.1 (0.0-0.2) th/mm3 Comprehensive Metabolic Panel 09/20/18 Range/Units 14:00 Sodium 140 (136-145) meq/L Potassium 3.6 (3.5-5.1) meq/L Chloride 106 (98-107) meq/L Carbon Dioxide 26.5 (21.0-32.0) meq/L BUN 14 (7-18) mg/dL Creatinine 0.96 (0.60-1.30) mg/dL Calcium 8.3 L (8.5-10.1) mg/dL AST 23 (15-37) U/L ALT 59 (12-78) U/L Alkaline Phosphatase 121 H (45-117) U/L Total Protein 7.7 (6.4-8.2) g/dL Albumin 3.9 (3.4-5.0) g/dL Intake and Output 09/20/18 09/20/18 09/20/18 06:59 14:59 22:59 Other: Weight 167.829 kg Patient Weight 09/21/18 06:59 Weight 167.829 kg - Imaging and Cardiology Imaging: Impressions Chest X-Ray 09/20/18 13:49 CONCLUSION: No acute cardiopulmonary abnormality is identified. Chest CTA 09/20/18 14:49 CONCLUSION: No evidence of pulmonary embolism. EKG interpretations - EKG EKG results cardiology: sinus rhythm, normal axis, normal QRS, normal ST/T Caprini VTE Risk Assessment Caprini VTE Risk Assessment: No/Low Risk (score <= 1) Caprini Risk Assessment Model: Point Value = 1 Point Value = 2 Point Value = 3 Point Value = 5 Age 41-60 Minor surgery BMI > 25 kg/m2 Swollen legs Varicose veins or History of unexplained or recurrent spontaneous Oral contraceptives or hormone replacement Sepsis (< 1 month) Serious lung disease, including pneumonia (< 1 month) Abnormal pulmonary function Acute myocardial infarction Congestive heart failure (< 1 month) History of inflammatory bowel disease Medical patient at bed rest Age 61-74 Arthroscopic surgery Major open surgery (> 45 min) Laparoscopic surgery (> 45 min) Malignancy Confined to bed (> 72 hours) Immobilizing plaster cast Central venous access Age >= 75 History of VTE Family history of VTE Factor V Leiden Prothrombin [id number] Lupus anticoagulant Anticardiolipin antibodies Elevated serum homocysteine Heparin-induced thrombocytopenia Other congenital or acquired thrombophilia Stroke (< 1 month) Elective arthroplasty Hip, pelvis, or leg fracture Acute spinal cord injury (< 1 month) Prophylaxis Regimen: Total Risk Factor Score Risk Level Prophylaxis Regimen 0-1 Low Early ambulation 2 Moderate Order ONE of the following: *Sequential Compression Device (SCD) *Heparin 5000 units SQ BID 3-4 Higher Order ONE of the following medications: *Heparin 5000 units SQ TID *Enoxaparin/Lovenox 40 mg SQ daily (WT < 150 kg, CrCl > 30 mL/min) *Enoxaparin/Lovenox 30 mg SQ daily (WT < 150 kg, CrCl > 10-29 mL/min) *Enoxaparin/Lovenox 30 mg SQ BID (WT < 150 kg, CrCl > 30 mL/min) AND/OR *Sequential Compression Device (SCD) 5 or more Highest Order ONE of the following medications: *Heparin 5000 units SQ TID (Preferred with Epidurals) *Enoxaparin/Lovenox 40 mg SQ daily (WT < 150 kg, CrCl > 30 mL/min) *Enoxaparin/Lovenox 30 mg SQ daily (WT < 150 kg, CrCl > 10-29 mL/min) *Enoxaparin/Lovenox 30 mg SQ BID (WT < 150 kg, CrCl > 30 mL/min) AND *Sequential Compression Device (SCD) Assessment and Plan - Assessment (1) Chest pain Code(s): R07.9 - Chest pain, unspecified Status: Acute Plan: Admitted to chest pain center. Rule out ACS with 3 sets of EKGs and cardiac enzymes. Monitor on telemetry overnight. Will be seen and evaluated by Dr. Jordi Abel. Discussed likely will proceed with previously recommended Lexiscan in the morning. Patient agreeable to plan of care, reports he is able to remain in hospital for further testing. (2) Hypertension Code(s): I10 - Essential (primary) hypertension Status: Chronic Plan: Continue to monitor. Continue metoprolol. (3) Hyperlipidemia Code(s): E78.5 - Hyperlipidemia, unspecified Status: Chronic Plan: Continue atorvastatin. (4) Diabetes Code(s): E11.9 - Type 2 diabetes mellitus without complications Status: Chronic Plan: SSI moderate dose coverage. Hold Lantus. (5) Tobacco abuse Code(s): Z72.0 - Tobacco use Status: Chronic Plan: Quit smoking 4 days ago. Encouragement provided. Strongly encouraged him to continue with his smoking cessation progress and discussed importance of tobacco cessation. (1) Chest pain Qualifiers: Chest pain type: unspecified Qualified Code(s): R07.9 - Chest pain, unspecified (2) Hypertension Qualifiers: Hypertension type: unspecified Qualified Code(s): I10 - Essential (primary) hypertension (3) Hyperlipidemia Qualifiers: Hyperlipidemia type: unspecified Qualified Code(s): E78.5 - Hyperlipidemia, unspecified (4) Diabetes Qualifiers: Diabetes mellitus type: type 2 Diabetes mellitus penitentiary insulin use: unspecified penitentiary insulin use status Diabetes mellitus complication status : with unspecified complications Qualified Code(s): E11.8 - Type 2 diabetes mellitus with unspecified complications
[2018-09-20] MEDS ORDERED: Dextrose 50% in Water 50 ML Vial IV.PUSH PRN (17:54)
[2018-09-20 18:05] LABS: Creatine Kinase 138 U/L (39-308)
[2018-09-20 22:38] LABS: Creatine Kinase 108 U/L (39-308)
[2018-09-20] MEDS: traZODone 100 MG Tablet PO SCH (23:39)
[2018-09-20] MEDS: Insulin NovoLOG Aspart Correctional Sugar Inj SQ SCH (23:40)
[2018-09-21] MEDS: Furosemide 40 MG Tablet PO SCH (09:05)
[2018-09-21] MEDS: Pregabalin 75 MG Capsule PO SCH (09:05)
[2018-09-21] MEDS: Metoprolol Tartrate 25 MG Tablet PO SCH ×2 (09:06→20:47)
[2018-09-21] MEDS: Insulin NovoLOG Aspart Correctional Sugar Inj SQ SCH ×4 (09:06→21:03)
[2018-09-21] MEDS ORDERED: Regadenoson Inj 0.4 MG/5 ML Syringe IV.PUSH ONE (09:54)
[2018-09-21] MEDS: Morphine Sulfate Inj 2 MG/ML Vial IV.PUSH PRN ×2 (13:30→20:47)
--- NOTE | 2018-09-21 14:45 | ECG ---
Date Performed: 09/20/2018 Time Performed: 21:38:10 PTAGE: 43 years EKG: Sinus rhythm MODERATE INTRAVENTRICULAR CONDUCTION DELAY ABNORMAL ECG PREVIOUS TRACING : 09/20/2018 17.19 Since previous tracing, no significant change noted DOCTOR: Jordi Abel Interpretating Date/Time 09/21/2018 14:43:46
--- NOTE | 2018-09-21 14:46 | ECG ---
Date Performed: 09/20/2018 Time Performed: 17:19:07 PTAGE: 43 years EKG: Sinus rhythm MODERATE INTRAVENTRICULAR CONDUCTION DELAY BORDERLINE ECG PREVIOUS TRACING : 09/20/2018 14.09 Since previous tracing, no significant change noted DOCTOR: Jordi Abel Interpretating Date/Time 09/21/2018 14:45:33
--- NOTE | 2018-09-21 14:48 | ECG ---
Date Performed: 09/20/2018 Time Performed: 14:09:22 PTAGE: 43 years EKG: Sinus rhythm NORMAL ECG PREVIOUS TRACING : 08/10/2018 05.12 Since previous tracing, no significant change noted DOCTOR: Jordi Abel Interpretating Date/Time 09/21/2018 14:46:23
--- NOTE | 2018-09-21 14:53 | TR ---
Date Performed: 09/21/2018 Time Performed: 09:20:31 DOCTOR: Jordi Abel DRUG LIST: CLINICAL HISTORY: CHEST PAIN CHEST PAIN REASON FOR TEST: CHEST PAIN REASON FOR ENDING: OBSERVATION: CONCLUSION: COMMENTS: Lexiscan stress test was performed under standard four minute protocol. Radionuclide was injected one minute prior to ending the test. No electrocardiographic abormalities were present t o suggest ischemia. Nuclear imaging and interpretation are pending.
[2018-09-21] MEDS: traZODone 100 MG Tablet PO SCH (20:47)
[2018-09-22] MEDS: Morphine Sulfate Inj 2 MG/ML Vial IV.PUSH PRN ×2 (04:10→08:43)
[2018-09-22] MEDS: Furosemide 40 MG Tablet PO SCH (08:45)
[2018-09-22] MEDS: Pregabalin 75 MG Capsule PO SCH (08:45)
[2018-09-22] MEDS: Metoprolol Tartrate 25 MG Tablet PO SCH (08:45)
[2018-09-22] MEDS: Insulin NovoLOG Aspart Correctional Sugar Inj SQ SCH (09:02)
--- NOTE | 2018-09-22 10:05 | NM ---
EXAM DATE: 09/22/2018 9:48 AM EST AGE/SEX: 43 years / Male INDICATIONS:Angina. Congestive heart failure Left sided chest pain. CLINICAL DATA: This is the patient's initial encounter. Patient reports that signs and symptoms have been present for 2 days and indicates a pain score of 1/10. MEDICAL/SURGICAL HISTORY: Diabetes mellitus type I. Hypertension. Fusion, lumbar. COMPARISON: No prior exams available for comparison. DOSE: 30.4 mCi Tc 99m Myoview at rest 30.2 mCi [id number] at stress 0.4 mg Lexiscan STRESS SYMPTOMS: Dyspnea. EJECTION FRACTION: 49 % TECHNIQUE: The patient underwent pharmacologic stress with infusion of prescribed dose. Continuous ECG tracing was monitored during stress. Gated SPECT imaging was performed after stress and conventi onal SPECT imaging was performed at rest. The examination was performed on a SPECT/CT scanner, both attenuation and non-corrected datasets were reviewed. Two day protocol was used. FINDINGS: Distribution: The maximum perfused segment at stress is in the inferior wall. Perfusion Study: There are no reversible perfusion abnormalities. Gated Study: Left ventricular chamber is enlarged. There is generalized hypokinesia with 49% ejectio n fraction. No discrete focal wall motion abnormalities is demonstrated. The ejection fraction is ca lculated at 49%. RISK CATEGORY: Intermediate (1-3 % Annual Mortality Rate) CONCLUSION: 1. Dilated left ventricle with 49% ejection fraction. 2. No evidence of stressed induced perfusion abnormality. Electronically signed by: Smith Webster MD 09/22/2018 10:03 AM EST
== END 2018-09-22 11:24 | disposition home or self-care (01) ==
LOC: NEDA 13:09 → NEPD 13:09 → NEDA 18:17 → NEPHCDU 19:26
PROVIDERS: ADMIT Internal Medicine Interventional Cardiology; ATTEND Internal Medicine Interventional Cardiology